=== PATIENT | female | born 1990 | race Caucasian/White ===

== ENCOUNTER 2018-03-15 13:04 | Emergency (ER) | payer MEDICAID ==
--- NOTE | 2018-03-15 13:24 | ED Physician Documentation ---
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 She pushed it back and her had got stuck in the drawer closing and then the top drawer came out and hit her on right side of head. No LOC. Persists in headche.) Where injury occurred: Home Timing - onset: Today Timing - details: Abrupt onset, Still present Improved by: Rest Worsened by: Moving, Palpating Associated symptoms: No: Weakness, Numbness Contributing factors: No: Anticoagulated Similar symptoms before: Has not had sx before Recently seen: Not recently seen Review of Systems Constitutional: reports: Other (front of head right side with some locall aswen) . denies: Fever, Chills Nose: denies: Rhinorrhea / runny nose, Congestion Throat: denies: Dental pain / toothache Neurologic: denies: Generalized weakness, Focal weakness, Numbness, Near syncope Psychiatric: denies: Suicidal PD PAST MEDICAL HISTORY - Present Medications Home Medications: Ambulatory Orders Medication Instructions Recorded Confirmed Alprazolam [Xanax] 03/15/18 Citalopram [CeleXA] 03/15/18 Zolpidem [Ambien] 03/15/18 busPIRone [Buspar] 03/15/18 - Allergies Allergies/Adverse Reactions: Allergies Allergy/AdvReac Type Severity Reaction Status Date / Time Penicillins Allergy Hives Verified 03/15/18 13:25 PD ED PE NORMAL - Vitals Vital signs reviewed: Yes - General General: Alert and oriented X 3, No acute distress, Well developed/nourished - HEENT HEENT: Atraumatic, PERRL, Ears normal, Pharynx benign, Other - Neck Neck: Supple, no meningeal sign, No adenopathy - Cardiac Cardiac: RRR, No murmur - Respiratory Respiratory: Clear bilaterally - Derm Derm: Normal color, Warm and dry Results - Vitals Vitals: Oxygen O2 Source Room air PD MEDICAL DECISION MAKING - Sepsis Event Vital Signs: Oxygen O2 Source Room air Departure - Departure Disposition: 01 Home, Self Care Clinical Impression: Crush injury to finger Qualifiers: Encounter type: initial encounter Qualified Code(s): S67.10XA - Crushing injury of unspecified finger(s), initial encounter Head contusion Qualifiers: Encounter type: initial encounter Contusion of head detail: scalp Qualified Code(s): S00.03XA - Contusion of scalp, initial encounter Mild concussion Qualifiers: Encounter type: initial encounter Loss of consciousness presence/duration: without LOC Qualified Code(s): S06.0X0A - Concussion without loss of consciousness, initial encounter Condition: Stable Record reviewed to determine appropriate education?: Yes Instructions: ED Contusion Finger, ED Head Injury Closed Comments: Use a finger splint for the finger to protect it and reduce motion for couple of days. Gentle range of motion periodically so does not stiffen. Progress use and range of motion as it feels better over the next few days. Light activity only for the next day or 2 until you are fully better with the concussive symptoms. Expect some mild local headache and lightheadedness and off balance for a day or 2. Help with your primary care if neither hand nor head are better over the next several days. Forms: Activity restrictions Discharge Date/Time: 03/15/18 14:47
[2018-03-15] MEDS ORDERED: IBUPROFEN 600 MG TABLET PO STA (13:38)
[2018-03-15] MEDS ORDERED: oxyCODONE 5 MG TABLET PO STA (13:39)
[2018-03-15 14:01] VITALS: BP 144/83
--- NOTE | 2018-03-15 14:13 | CT Report ---
Reason: struck in head by file drawer Procedure Date: 03/15/2018 Accession Number: [id number] / [id number] Procedure: CT - Head W/O CPT Code: FULL RESULT: EXAM: CT HEAD EXAM DATE: 03/15/2018 02:03 PM. CLINICAL HISTORY: Acute pain due to trauma. COMPARISON: None. TECHNIQUE: Multiaxial CT images were obtained from the foramen magnum to the vertex. Reformats: Sagittal and coronal. IV contrast: None. In accordance with CT protocol optimization, one or more of the following dose reduction techniques were utilized for this exam: automated exposure control, adjustment of mA and/or KV based on patient size, or use of iterative reconstructive technique. FINDINGS: Parenchyma: No intraparenchymal hemorrhage. No evidence of mass, midline shift, or CT findings of infarction. Rodriguez-white differentiation is distinct. Extraaxial Spaces: Normal for age. No subdural or epidural collections identified. Ventricles: Normal in size and position. Sinuses and Orbits: Imaged paranasal sinuses, orbits, and mastoids show no significant abnormality. Bones: No evidence of fracture or calvarial defect. Other: None. IMPRESSION: Normal head CT. RADIA
--- NOTE | 2018-03-15 14:25 | XRAY Report ---
Reason: finger caught in file drawer Procedure Date: 03/15/2018 Accession Number: [id number] / [id number] Procedure: XR - Finger(s) LT CPT Code: FULL RESULT: EXAM: LEFT SECOND DIGIT RADIOGRAPHY EXAM DATE: 03/15/2018 02:05 PM. CLINICAL HISTORY: Left finger pain. COMPARISON: None. TECHNIQUE: 3 views. FINDINGS: Bones: Normal. No fracture or bone lesion. Joints: Normal. No subluxations. Soft Tissues: Normal. No soft tissue swelling. IMPRESSION: Normal digit radiography. RADIA
== END 2018-03-15 14:47 | disposition home or self-care (01) ==
LOC: ED 13:04
DX: S67.191A Crushing injury of left index finger, initial encounter (principal); S00.03XA Contusion of scalp, initial encounter; S06.0X0A Concussion without loss of consciousness, initial encounter; W23.0XXA Caught, crushed, jammed, or pinched between moving objects, initial encounter; W20.8XXA Other cause of strike by thrown, projected or falling object, initial encounter; Y92.219 Unspecified school as the place of occurrence of the external cause; Y99.2 Volunteer activity
CPT/HCPCS: 70450; 73140; 99282; 99283; A9270

== ENCOUNTER 2018-07-12 18:28 | Outpatient (CLI) | payer MEDICAID | END 2018-07-12 18:29 | disposition EMS.NT | LOC: EMS 18:28 | PROVIDERS: ATTEND Surgery | DX: T75.89XA Other specified effects of external causes, initial encounter (principal); Z53.20 Procedure and treatment not carried out because of patient's decision for unspecified reasons ==

== ENCOUNTER 2019-03-14 12:08 | Emergency (ER) | payer OTHER, MEDICAID ==
[2019-03-14] MEDS ORDERED: IBUPROFEN 800 MG TABLET PO STA (13:45)
--- NOTE | 2019-03-14 13:48 | ED Physician Documentation ---
PD HPI LOWER EXT INJURY - Stated complaint Stated Complaint: LEFT KNEE PX - Chief complaint Chief Complaint: Trauma Ext - History obtained from History obtained from: Patient - History of Present Illness PD HPI LOW EXT INJURY LOCATION: Left, Knee Type of injury: Fall Where injury occurred: Work Timing - onset: How many minutes ago (20) Worsened by: Other (weight bearing) Contributing factors: Prior ortho surgery (Left ACL repair 09/2016.) - Additional information Additional information: Patient is a 28-year-old female who presents with left knee pain. She fell down while walking on the stairs at work about 20 minutes prior to arrival. She impacted her left knee, and has had pain with weightbearing since that time. She denies any other injuries. Past medical history is significant for left ACL repair in September 2016. 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 - Present Medications Home Medications: Ambulatory Orders Medication Instructions Recorded Confirmed Alprazolam [Xanax] 03/15/18 Citalopram [CeleXA] 03/15/18 Zolpidem [Ambien] 03/15/18 busPIRone [Buspar] 03/15/18 Hydrocodone/Acetaminophen 1 - 2 each PO Q6H PRN #14 tablet 03/14/19 [Hydrocodon-Acetaminophen 5-325] - Allergies Allergies/Adverse Reactions: Allergies Allergy/AdvReac Type Severity Reaction Status Date / Time Penicillins Allergy Hives Verified 03/14/19 12:39 - Social History Does the pt smoke?: Yes Smoking Status: Current every day smoker Does the pt have substance abuse?: No PD ED PE NORMAL - Vitals Vital signs reviewed: Yes (hypertensive) - General General: Alert and oriented X 3, Well developed/nourished - HEENT HEENT: Atraumatic - Neck Neck: No bony TTP - Cardiac Cardiac: RRR - Respiratory Respiratory: No respiratory distress - Back Back: No CVA TTP, No spinal TTP - Derm Derm: No rash - Extremities Extremities: No edema, No calf tenderness / cord, Other (There is mild swelling of the left knee, with tenderness to palpation along both the medial and lateral joint lines. There is no prepatellar tenderness or popliteal tenderness. She has full extension of the knee, but can flex only to 45 degrees due to pain. There is no ligamentous instability detected. Distal neurovascular is intact.) - Neuro Neuro: Alert and oriented X 3, No motor deficit, No sensory deficit Results - Vitals Vitals: Vital Signs - 24 hr 03/14/19 03/14/19 12:35 14:55 Temperature 36.6 C 37 C Heart Rate 91 73 Respiratory 14 16 Rate Blood Pressure 139/101 H 132/76 H O2 Saturation 99 95 Oxygen O2 Source Room air - Rads (name of study) Left knee Radiology: Prelim report reviewed, EMP read contemporaneously, See rad report (No evidence of fracture or dislocation. Status post ACL repair. There may be a suprapatellar joint effusion.) PD MEDICAL DECISION MAKING - ED course Complexity details: reviewed results, re-evaluated patient, considered differential, d/w patient ED course: The patient's presentation is significant for contusion to the left knee, with a small suprapatellar effusion. There is no evidence of acute bony abnormality on x-ray examination. There is no ligamentous instability detected on physical examination. Treatment in the emergency department included administration of ibuprofen 800 mg orally, followed by Vicodin 1 tablet orally. A knee immobilizer was admin istered. An L&I form was completed. 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 Departure - Departure Disposition: 01 Home, Self Care Clinical Impression: Knee contusion Qualifiers: Encounter type: initial encounter Laterality: left Qualified Code(s): S80.02XA - Contusion of left knee, initial encounter Condition: Stable Instructions: ED Contusion Lower Ext Follow-Up: KELLY VALLE DO [Primary Care Provider] - Prescriptions: Hydrocodone/Acetaminophen [Hydrocodon-Acetaminophen 5-325] 1 - 2 each PO Q6H PRN #14 tablet PRN Reason: pain Comments: Apply ice pack to your knee intermittently for the next several days. You can use ibuprofen, up to 800 mg 3 times daily for anti-inflammatory effect. You can use Vicodin as prescribed as needed for pain. Let pain be your guide to activity level. Follow-up with your primary physician within 1 week. Call to schedule appoint ment. Return to the emergency department if you develop markedly increasing swelling, increasing pain, or otherwise worsening symptoms. Forms: Activity restrictions Discharge Date/Time: 03/14/19 15:15
--- NOTE | 2019-03-14 14:22 | XRAY Report ---
Reason: Left knee injury Procedure Date: 03/14/2019 Accession Number: [id number] / [id number] Procedure: XR - Knee 3 View LT CPT Code: FULL RESULT: EXAM: LEFT KNEE RADIOGRAPHY EXAM DATE: 03/14/2019 02:07 PM. CLINICAL HISTORY: Left knee injury. COMPARISON: None. TECHNIQUE: 3 views. FINDINGS: Bones: No fracture or focal bony lesion. Joints: No evidence of dislocation. Patient has undergone ACL repair. No evidence of hardware dysfunction. There may be a suprapatellar joint effusion. Soft Tissues: No unexpected soft tissue findings. IMPRESSION: 1. No evidence of fracture or dislocation. 2. Status post ACL repair. 3. There may be a suprapatellar joint effusion. RADIA
[2019-03-14] MEDS ORDERED: HYDROcod/ACETAM 5/325 MG TABLET PO STA (14:28)
[2019-03-14 14:56] VITALS: BP 132/76
== END 2019-03-14 15:15 | disposition home or self-care (01) ==
LOC: ED 12:08
DX: S80.02XA Contusion of left knee, initial encounter (principal); W10.9XXA Fall (on) (from) unspecified stairs and steps, initial encounter; Y93.01 Activity, walking, marching and hiking; Y99.0 Civilian activity done for income or pay; F17.200 Nicotine dependence, unspecified, uncomplicated
CPT/HCPCS: 1040M; 73562; 99283; A9270

== ENCOUNTER 2020-03-20 15:34 | Emergency (ER) | payer MEDICAID ==
[2020-03-20 16:15] LABS: HGB - HEMOGLOBIN 13.2 g/dL (12.0-16.0)
[2020-03-20] MEDS ORDERED: HYDROmorphone 1 MG/ML CARPUJECT IM STA (16:52)
[2020-03-20] MEDS ORDERED: KETOROLAC 60 MG/2 ML VIAL IM STA (16:52)
--- NOTE | 2020-03-20 16:54 | ED Physician Documentation ---
PD HPI FEMALE - Stated complaint Stated Complaint: FEMALE - Chief complaint Chief Complaint: Abd Pain - History obtained from History obtained from: Patient (Provera shot in mid January. For the last several weeks she has had heavy bleeding, several pads a day. Severe left pelvic pain starting today. 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 - Present Medications Home Medications: Ambulatory Orders Medication Instructions Recorded Confirmed Alprazolam [Xanax] 03/15/18 Citalopram [CeleXA] 03/15/18 Zolpidem [Ambien] 03/15/18 busPIRone [Buspar] 03/15/18 Hydrocodone/Acetaminophen 1 - 2 each PO Q6H PRN #14 tablet 03/14/19 [Hydrocodon-Acetaminophen 5-325] - Allergies Allergies/Adverse Reactions: Allergies Allergy/AdvReac Type Severity Reaction Status Date / Time Penicillins Allergy Hives Verified 03/14/19 12:39 - Social History Does the pt smoke?: Yes Smoking Status: Current every day smoker Does the pt have substance abuse?: No PD ED PE NORMAL - Vitals Vital signs reviewed: Yes - General General: Alert and oriented X 3, Other (, Inconsolable) - Abdomen Abdomen: Soft, Non tender - Back Back: No CVA TTP - Extremities Extremities: No edema, No calf tenderness / cord - Neuro Neuro: Alert and oriented X 3, Normal speech Results - Vitals Vitals: Vital Signs - 24 hr 03/20/20 03/20/20 03/20/20 15:43 16:58 18:00 Temperature 36.9 C Heart Rate 93 83 97 Respiratory 18 18 Rate Blood Pressure 143/118 H 137/107 H 132/97 H O2 Saturation 100 100 96 03/20/20 03/20/20 03/20/20 19:32 19:51 21:03 Temperature 36.6 C Heart Rate 76 78 80 Respiratory 16 16 16 Rate Blood Pressure 158/111 H 131/89 H 154/109 H O2 Saturation 98 98 98 Oxygen O2 Source Room air - Labs Labs: Laboratory Tests 03/20/20 03/20/20 03/20/20 16:10 16:45 16:57 WBC RBC Hgb 13.2 Hct 40.3 MCV MCH MCHC RDW Plt Count MPV Neut # (Auto) Lymph # (Auto) [place] # (Auto) Eos # (Auto) Baso # (Auto) Absolute Nucleated RBC Nucleated RBC % Sodium Potassium Chloride Carbon Dioxide Anion Gap BUN Creatinine Estimated GFR (MDRD) Glucose Calcium Total Bilirubin AST ALT Alkaline Phosphatase Total Protein Albumin Globulin Albumin/Globulin Ratio Lipase Urine Color LT. YELLOW Urine Clarity CLEAR Urine pH 7.0 Ur Specific [place] 1.020 Urine Protein NEGATIVE Urine Glucose (UA) NEGATIVE Urine Ketones NEGATIVE Urine Occult Blood TRACE-INTA Urine Nitrite NEGATIVE Urine Bilirubin NEGATIVE Urine Urobilinogen 0.2 (NORMAL) Ur Leukocyte Esterase NEGATIVE Ur Microscopic Review NOT INDICATED Urine Culture Comments NOT INDICATED Urine HCG, Qual NEGATIVE Urine Opiates Screen NEGATIVE Ur Oxycodone Screen NEGATIVE Urine Methadone Screen NEGATIVE Ur Propoxyphene Screen NEGATIVE Ur Barbiturates Screen NEGATIVE Ur Tricyclics Screen NEGATIVE Ur Phencyclidine Scrn NEGATIVE Ur Amphetamine Screen POSITIVE H U Methamphetamines Scrn NEGATIVE U Benzodiazepines Scrn NEGATIVE Urine Cocaine Screen POSITIVE H U Cannabinoids Screen POSITIVE H 03/20/20 03/20/20 20:35 20:35 WBC 9.7 RBC 4.20 Hgb 12.4 Hct 38.3 MCV 91.2 MCH 29.5 MCHC 32.4 RDW 12.7 Plt Count 252 MPV 10.8 Neut # (Auto) 5.8 Lymph # (Auto) 2.8 [place] # (Auto) 0.8 Eos # (Auto) 0.3 Baso # (Auto) 0.1 Absolute Nucleated RBC 0.00 Nucleated RBC % 0.0 Sodium 138 Potassium 3.9 Chloride 104 Carbon Dioxide 25 Anion Gap 9.0 BUN 9 Creatinine 0.7 Estimated GFR (MDRD) 100 Glucose 94 Calcium 9.1 Total Bilirubin 0.4 AST 20 ALT 16 Alkaline Phosphatase 64 Total Protein 6.7 Albumin 3.9 Globulin 2.8 Albumin/Globulin Ratio 1.4 Lipase 88 H Urine Color Urine Clarity Urine pH Ur Specific [place] Urine Protein Urine Glucose (UA) Urine Ketones Urine Occult Blood Urine Nitrite Urine Bilirubin Urine Urobilinogen Ur Leukocyte Esterase Ur Microscopic Review Urine Culture Comments Urine HCG, Qual Urine Opiates Screen Ur Oxycodone Screen Urine Methadone Screen Ur Propoxyphene Screen Ur Barbiturates Screen Ur Tricyclics Screen Ur Phencyclidine Scrn Ur Amphetamine Screen U Methamphetamines Scrn U Benzodiazepines Scrn Urine Cocaine Screen U Cannabinoids Screen - Rads (name of study) Pelvic sono Radiology: EMP read contemporaneously (retroverted uterus, otherwise NAD) PD MEDICAL DECISION MAKING - ED course ED course: 29-year-old woman with Left pelvic pain and vaginal bleeding. Examination fairly benign initially but a lot of histrionic behavior and anxiety. Pain was managed with divided doses of pain meds and also needed some anxiolysis. Pelvic ultrasound was reportedly normal. Subsequently on reexamination at approximately 8:20 PM although the pain was still on the left side for her she developed some mild right lower quadrant tenderness. CT was ordered. Her H&H was reassuring. test negative. Ultrasound negative and this was followed by a CT with IV contrast that was also negative. We discussed her positive drug test for amphetamines, cocaine, and marijuana. She says her last amphetamine and cocaine use was 5 days ago when she does not use marijuana daily. She was counseled to avoid the use of illegal drugs. She was offered an observation stay for persistent pain which she declined. Departure - Departure Disposition: 01 Home, Self Care Clinical Impression: Abdominal pain Qualifiers: Abdominal location: left lower quadrant Qualified Code(s): R10.32 - Left lower quadrant pain Condition: Good Record reviewed to determine appropriate education?: Yes Instructions: Abdominal Pain Comments: Return tomorrow if not better, Sooner if worse or if new symptoms develop.
[2020-03-20 17:05] LABS: BILIRUBIN,URINE NEGATIVE (NEGATIVE); GLUCOSE, URINE (UA) NEGATIVE (NEGATIVE); KETONES,URINE (UA) NEGATIVE (NEGATIVE); LEUKOCYTE ESTERASE, URINE NEGATIVE (NEGATIVE); NITRITE,URINE NEGATIVE (NEGATIVE); OCCULT BLOOD,URINE TRACE-INTA (NEGATIVE); PROTEIN,URINE NEGATIVE (NEGATIVE); UROBILINOGEN,URINE 0.2 (NORMAL) E.U./dL (NORMAL)
[2020-03-20 17:07] LABS: CLARITY,URINE CLEAR (CLEAR)
[2020-03-20 17:09] LABS: HCG UR QUAL NEGATIVE
[2020-03-20] MEDS ORDERED: HYDROmorphone 1 MG/ML CARPUJECT IVP STA ×3 (18:27→21:56)
[2020-03-20] MEDS ORDERED: LORazepam 2 MG/ML VIAL IVP STA (19:37)
--- NOTE | 2020-03-20 20:33 | Ultrasound Report ---
PROCEDURE: Pelvic w/Transvag+Doppler Comp INDICATIONS: pelvic pain, L TECHNIQUE: Real-time scanning was performed of the pelvic organs, with image documentation. Additional endovagi nal scanning was necessary due to incomplete visualization of the adnexal and endometrial structures by transabdominal scanning. COMPARISON: None. FINDINGS: Transabdominal scanning: Limited scanning through the kidneys shows no hydronephrosis. No pathologi c free abdominal or pelvic fluid. Endovaginal scanning: Uterus: Uterus is retroverted and normal in size at 6.3 x 3.4 x 4.4 cm. The endometrium measures 4 mm in combined thickness. No definite uterine mass. Normal vascularity of the myometrium and endomet rium. Ovaries: The right ovary measures 3.3 x 2.0 x 2.4 cm. The left ovary measures 3.2 x 1.6 x 1.2 cm. [place]ner th ovaries demonstrate normal follicular echotexture and vascularity. No suspicious adnexal masses. IMPRESSION: 1. Retroverted uterus with otherwise normal morphology. 2. Normal ovaries. Reviewed by: Kelli Keys MD on 03/20/2020 8:32 PM PDT Approved by: Kelli Keys MD on 03/20/2020 8:32 PM PDT Station ID: [id number]
[2020-03-20 20:44] LABS: BASOPHILS # (AUTO) 0.1 10^3/uL (0.0-0.1); BASOPHILS % (AUTO) 0.6 %; EOSINOPHILS # (AUTO) 0.3 10^3/uL (0.0-0.7); EOSINOPHILS % (AUTO) 2.7 %; HGB - HEMOGLOBIN 12.4 g/dL (12.0-16.0); LYMPHOCYTES # (AUTO) 2.8 10^3/uL (1.5-3.5); LYMPHOCYTES % (AUTO) 28.6 %; MEAN CORPUSCULAR HEMOGLOBIN 29.5 pg (27.0-31.0); MEAN CORPUSCULAR HGB CONC 32.4 g/dL (32.0-36.0); MEAN CORPUSCULAR VOLUME 91.2 fL (81.0-99.0); MEAN PLATELET VOLUME 10.8 fL (7.9-10.8); MONOCYTES # (AUTO) 0.8 10^3/uL (0.0-1.0); MONOCYTES % (AUTO) 8.3 %; NEUTROPHILS # (AUTO) 5.8 10^3/uL (1.5-6.6); NEUTROPHILS % (AUTO) 59.5 %; PLT - PLATELET COUNT 252 10^3/uL (130-450); RED CELL DISTRIBUTION WIDTH 12.7 % (12.0-15.0); WHITE BLOOD COUNT 9.7 x10^3/uL (4.8-10.8)
[2020-03-20 20:57] LABS: ALBUMIN 3.9 g/dL (3.2-5.5); ALBUMIN/GLOBULIN RATIO 1.4 (1.0-2.2); BILIRUBIN,TOTAL 0.4 mg/dL (0.2-1.0); CALCIUM 9.1 mg/dL (8.5-10.3); CREATININE 0.7 mg/dL (0.4-1.0); TOTAL PROTEIN 6.7 g/dL (6.7-8.2)
[2020-03-20] MEDS ORDERED: IOVERSOL 320 100 ML VIAL IVP ONE ×2 (21:17→21:35)
[2020-03-20 21:22] LABS: MUDS CUTOFF CONCENTRATIONS CUTOFF CONC BELOW:
[2020-03-20 21:43] LABS: AMPHETAMINE SCREEN,URINE POSITIVE (NEGATIVE); BENZODIAZEPINES SCREEN, URINE NEGATIVE (NEGATIVE); COCAINE SCREEN URINE POSITIVE (NEGATIVE); METHADONE SCREEN, URINE NEGATIVE (NEGATIVE); METHAMPHETAMINES SCREEN, URINE NEGATIVE (NEGATIVE); OPIATE SCREEN, URINE NEGATIVE (NEGATIVE); OXYCODONE SCREEN, URINE NEGATIVE (NEGATIVE); PROPOXYPHENE SCREEN, URINE NEGATIVE (NEGATIVE); TRICYCLIC ANTIDEPRESSANT,URINE NEGATIVE (NEGATIVE)
--- NOTE | 2020-03-20 21:46 | CT Report ---
PROCEDURE: Abdomen/Pelvis W INDICATIONS: IV only, low abd pain CONTRAST: IV CONTRAST: Optiray 320 ml: 100 PO CONTRAST: *NO PO CONTRAST TECHNIQUE: After the administration of 100 cc Optiray 320 IV contrast contrast, 5 mm thick sections acquired fro m the diaphragms to the symphysis. 5 mm thick coronal and sagittal reformats were acquired. For rad iation dose reduction, the following was used: automated exposure control, adjustment of mA and/or k V according to patient size. COMPARISON: None. Correlation made to pelvic ultrasound performed the same day. FINDINGS: Image quality: Excellent. ABDOMEN: Lung bases: Lung bases are clear. Heart size is normal. Very small hiatal hernia present. Solid organs: Liver and spleen are normal in size and enhancement. Gallbladder is normal Biliary s ystem is non dilated. Pancreas enhances normally. No adrenal nodules. Kidneys demonstrate normal s ize and enhancement, without hydronephrosis. Peritoneum and bowel: Bowel loops demonstrate normal wall thickness and caliber. Increased quantity of solid stool in the colon. Normal appendix. No free fluid or air. Nodes and vessels: No retroperitoneal or mesenteric adenopathy by size criteria. Aorta and inferior vena cava are normal in size. Miscellaneous: No ventral hernias. PELVIS: Genitourinary: Bladder wall thickness is normal. Normal uterus and ovaries. Miscellaneous: No inguinal hernias or adenopathy. Bones: No suspicious bony lesions. No vertebral body compression fractures. IMPRESSION: 1. No CT evidence of acute process. 2. Incidental note made of very small hiatal hernia. Reviewed by: Kelli Keys MD on 03/20/2020 9:45 PM PDT Approved by: Kelli Keys MD on 03/20/2020 9:45 PM PDT Station ID: [id number]
[2020-03-20] MEDS ORDERED: METOCLOPRAMIDE 10 MG/2 ML VIAL IVP STA (21:49)
[2020-03-20] MEDS ORDERED: oxyCODONE/ACET 5/325 Prepack 4 PO STA (21:56)
[2020-03-20] MEDS ORDERED: ONDANSETRON ODT 4 MG Prepack 2 TL STA (21:56)
[2020-03-20 22:38] VITALS: BP 155/100
== END 2020-03-20 22:38 | disposition home or self-care (01) ==
LOC: ED 15:34
DX: R10.32 Left lower quadrant pain (principal)
CPT/HCPCS: 36415; 74177; 76830; 76856; 80053; 80306; 81003; 81025; 83690; 85014; 85018; 85025; 93975; 96372; 96374; 96375; 96376; 99284; 99285; J1170; J2060; J2765; Q9967; 81001; 87086

== ENCOUNTER 2021-08-27 10:34 | Emergency (ER) | payer MEDICAID ==
[2021-08-27] MEDS ORDERED: MECLIZINE 12.5 MG TABLET PO STA (11:55)
--- NOTE | 2021-08-27 11:55 | ED Physician Documentation ---
PD HPI FOCAL NEURO - Stated complaint Stated Complaint: DIZZINESS/NAUSEA - Chief complaint Chief Complaint: Neuro - History obtained from History obtained from: Patient - Additional information Additional information: 31-year-old woman who for the last several months has been dealing with hearing loss progressing from 70 and now to 90% in the right ear. It is associated with occasional tinnitus and worsening episodic vertigo. She saw ENT, but it sounds like they didn't know about the vertigo part of it, and she has hearing aids now. Today worsening vertigo caused her to have a fall where she hit her head. She did not lose consciousness and now has only a mild headache. In her work-up so far she has had a brain MRI which she says was normal. 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 - Present Medications Home Medications: Ambulatory Orders Medication Instructions Recorded Confirmed ALPRAZolam [Xanax] 03/15/18 Citalopram [CeleXA] 03/15/18 Zolpidem [Ambien] 03/15/18 busPIRone [Buspar] 03/15/18 Hydrocodone/Acetaminophen 1 - 2 each PO Q6H PRN #14 tablet 03/14/19 [Hydrocodon-Acetaminophen 5-325] LORazepam [Ativan] 1 mg PO TID PRN #12 tablet 08/27/21 Meclizine HCl [Motion Sickness] 25 mg PO Q6H PRN #20 tablet 08/27/21 Triamterene/Hdyrochlor 37.5/25 1 each PO DAILY #30 cap 08/27/21 [Dyazide] predniSONE [Deltasone] 20 mg PO [id number] #21 tab 08/27/21 - Allergies Allergies/Adverse Reactions: Allergies Allergy/AdvReac Type Severity Reaction Status Date / Time Penicillins Allergy Hives Verified 08/27/21 10:46 - Social History Does the pt smoke?: Yes Smoking Status: Current every day smoker Does the pt drink ETOH?: Yes Does the pt have substance abuse?: No - Immunizations Immunizations are current?: Yes PD ED PE NORMAL - Vitals Vital signs reviewed: Yes - General General: Alert and oriented X 3, No acute distress (She appears to be dizzy) - HEENT HEENT: PERRL, EOMI, Other (No nystagmus) - Neck Neck: Supple, no meningeal sign, No bony TTP - Neuro Neuro: Alert and oriented X 3, lease attendant 2-12 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 We will start treatment with prednisone and triamterene hydrochlorothiazide pending follow-up. She hit her head but only has a mild headache with no other signs of head injury. Departure - Departure Disposition: Home, Self Care Clinical Impression: Meniere disease Condition: Good Record reviewed to determine appropriate education?: Yes Instructions: Meniere Disease Lifestyle Change, ED Meniere Disease Prescriptions: LORazepam [Ativan] 1 mg PO TID PRN #12 tablet PRN Reason: Anxiety predniSONE [Deltasone] 20 mg PO [id number] #21 tab Triamterene/Hdyrochlor 37.5/25 [Dyazide] 1 each PO DAILY #30 cap Meclizine HCl [Motion Sickness] 25 mg PO Q6H PRN #20 tablet PRN Reason: Dizziness Comments: I sent your prescription to [facility] [place] Followup with your primary care Monday. Consider referral to vestibular physical therapy. [place]: [facility] [phone] ext [phone] Consider again referral to ENT now with a diagnosis of Mnire's disease. Do not drink or drive while taking meclizine or Ativan.
[2021-08-27 12:12] VITALS: BP 137/97
== END 2021-08-27 12:21 | disposition home or self-care (01) ==
LOC: ED 10:34
DX: H81.03 Meniere's disease, bilateral (principal); F17.200 Nicotine dependence, unspecified, uncomplicated
CPT/HCPCS: 99283; 99284; A9270

== ENCOUNTER 2022-09-29 02:15 | Outpatient (CLI) | payer MEDICAID, OTHER ==
[2022-09-30 06:10] LABS: HBsAG SCREEN Negative (Negative)
[2022-09-30 07:10] LABS: HCV AB Non Reactive (Non Reactive); HIV SCREEN 4TH GENERATION Non Reactive (Non Reactive)
== END 2022-09-29 02:30 | disposition home or self-care (01) ==
LOC: LAB.N 02:15
PROVIDERS: ATTEND Registered Nurse
DX: Z77.21 Contact with and (suspected) exposure to potentially hazardous body fluids (principal); W46.1XXA Contact with contaminated hypodermic needle, initial encounter; Y99.9 Unspecified external cause status
CPT/HCPCS: 36415; 86704; 86803; 87340; 87389

== ENCOUNTER 2023-06-23 15:03 | Outpatient (CLI) | payer OTHER ==
--- NOTE | 2023-06-23 19:56 | XRAY Report ---
PROCEDURE: Nasal Bones INDICATIONS: UNSPECIFIED INJURY TO NOSE TECHNIQUE: 3 views of the nasal bones acquired. COMPARISON: None FINDINGS: Bones: No fractures or dislocations. Nasal septum is midline. Normal nasociliary nerve grooves are noted. Soft tissues: No suspicious soft tissue calcifications. IMPRESSION: Unremarkable nasal bone radiographs Reviewed by: Kishor Mendoza MD on 06/23/2023 6:55 PM [place] Approved by: Kishor Mendoza MD on 06/23/2023 6:55 PM [place] Station ID: [id number]
== END 2023-06-23 23:59 | disposition home or self-care (01) ==
LOC: DI.N 15:03
PROVIDERS: ATTEND Physician Assistant Medical
DX: S09.92XA Unspecified injury of nose, initial encounter (principal)

== ENCOUNTER 2023-08-14 12:00 | Outpatient (CLI) | payer OTHER ==
--- NOTE | 2023-08-14 16:50 | XRAY Report ---
PROCEDURE: Knee 3V LT INDICATIONS: CONTUSION OF LEFT KNEE TECHNIQUE: 3 views of the knee(s) were acquired. COMPARISON: None. FINDINGS: Bones: The patella is deviated laterally. Postop changes of the knee are seen with orthopedic hardwa re without evidence of perihardware lucencies. Narrowing of the knee joint seen especially in the med ial compartment. No acute fracture or subluxation can be discerned. Soft tissues: Soft tissue swelling, suprapatellar joint effusion of the left knee noted. IMPRESSION: 1. Lateral deviation of the patella, large amount of soft tissue swelling and a large suprapatellar j oint effusion. If indicated, CT (due to metallic hardware) or MRI of the knee may provide additional diagnostic benefit. 2. Chronic postoperative changes of the l eft knee Reviewed by: Adam Inman MD on 08/14/2023 4:48 PM PST Approved by: Adam Inman MD on 08/14/2023 4:48 PM PST Station ID: [id number]
== END 2023-08-14 12:15 | disposition home or self-care (01) ==
LOC: DI.N 12:00
PROVIDERS: ATTEND Family Medicine
DX: S80.02XA Contusion of left knee, initial encounter (principal); S83.015A Lateral dislocation of left patella, initial encounter; M25.462 Effusion, left knee; Z96.698 Presence of other orthopedic joint implants

== ENCOUNTER 2024-03-21 10:15 | Outpatient (CLI) | payer OTHER ==
--- NOTE | 2024-03-21 15:04 | XRAY Report ---
PROCEDURE: Sacrum/Coccyx INDICATIONS: COCCYX PAIN TECHNIQUE: 2 views of the sacrum and coccyx acquired. COMPARISON: None. FINDINGS: Bones: No fractures or dislocations. Mild right sacroiliac joint osteophytic changes are seen with j oint space narrowing and subchondral sclerosis. No suspicious bony lesions. Soft tissues: Visualized bowel gas pattern is normal. No suspicious soft tissue densities. IMPRESSION: No acute sacral or coccygeal fracture. Suggestion of mild right-sided sacroiliitis. No gross bony ero katie or ankylosis. Reviewed by: Jarvis Lea MD on 03/21/2024 3:03 PM PDT Approved by: Jarvis Lea MD on 03/21/2024 3:03 PM PDT Station ID: [id number]
--- NOTE | 2024-03-21 15:05 | XRAY Report ---
PROCEDURE: Lumbar Spine 2-3V INDICATIONS: COCCYX PAIN TECHNIQUE: 3 views of the lumbar spine were acquired. COMPARISON: None. FINDINGS: Surgical change: None. Bones: 5 [id number] vertebrae are present. There is normal bony alignment. No vertebral body co mpression fractures. No suspicious bony lesions. Soft tissues: Overlying bowel gas pattern is normal. No suspicious soft tissue calcifications. IMPRESSION: No acute compression fracture or spondylolisthesis. No significant degenerative disc disease. Reviewed by: Jarvis Lea MD on 03/21/2024 3:04 PM PDT Approved by: Jarvis Lea MD on 03/21/2024 3:04 PM PDT Station ID: [id number]
== END 2024-03-21 10:30 | disposition home or self-care (01) ==
LOC: DI.N 10:15
PROVIDERS: ATTEND Physician Assistant
DX: M53.3 Sacrococcygeal disorders, not elsewhere classified (principal)